=== PATIENT | female | born 1995 | race African-American/Black ===

== ENCOUNTER 2022-11-18 17:14 | Emergency (ER) | payer MEDICAID, OTHER ==
[~2022-11-18] VITALS: Ht 170.2 cm; Wt 113.6 kg
[2022-11-18 17:37] LABS: Basophils # (auto) 0 10 ^3/uL (0-0.2); Basophils % (auto) 0.5 % (0.0-2.0); Eosinophils # (auto) 0.2 10 ^3/uL (0-0.8); Eosinophils % (auto) 3.1 % (0.0-7.0); Hematocrit 36.1 % (36.0-46.0); Hemoglobin 12.1 g/dL (12.2-16.2); Lymphocytes # (auto) 2.1 10 ^3/uL (0.4-5.4); Mean Corpuscular Hemoglobin 29.7 pg (28.0-32.0); Mean Corpuscular Hgb Conc. 33.6 g/dL (32.0-36.0); Mean Corpuscular Volume 88.5 fL (80.0-100.0); Monocytes # (auto) 0.3 10 ^3/uL (0-1.3); Monocytes % (auto) 5.2 % (0.0-12.0); Neutrophils # (auto) 3.4 10 ^3/uL (1.6-8.6); Neutrophils % (auto) 56.2 % (37.0-80.0); Red Blood Cells 4.08 10^6/uL (4.0-5.20); Red Cell Distribution Width 13.2 % (11.8-14.3); White Blood Cell 6.1 10^3/uL (4.4-10.8)
[2022-11-18 17:58] LABS: Alanine Aminotransferase 15 U/L (7-40); Albumin 3.8 g/dL (3.2-4.8); Alkaline Phosphatase 74 U/L (46-116); Anion Gap 7 (5-15); Aspartate Aminotransferase 16 U/L (13-40); BUN/Creatinine Ratio 9.4 (10.0-20.0); Blood Urea Nitrogen 9 mg/dL (9-23); Carbon Dioxide 26 mmol/L (20-30); Chloride 109 mmol/L (98-107); Glucose 77 mg/dL (74-106); Potassium 3.7 mmol/L (3.5-5.1); Sodium 142 mmol/L (136-145)
[2022-11-18 17:59] LABS: Bilirubin, Total 0.4 mg/dL (0.2-1.0); Total Protein 6.3 g/dL (5.7-8.2)
[2022-11-18] MEDS ORDERED: IBUP-1456 PO (18:55)
[2022-11-18] MEDS ORDERED: IBUPROFEN 800 MG TAB PO ONE (19:00)
[2022-11-18] MEDS ORDERED: SIMETHICONE 80 MG CHEWABLE TABLET PO ONE (19:00)
[2022-11-18 19:35] VITALS: BP 114/72; PULSE 80; RESP 18; TEMP 98; O2SAT 99
== END 2022-11-18 19:37 | disposition home or self-care (01) ==
LOC: ER 17:14
DX: R07.89 Other chest pain (principal); J45.909 Unspecified asthma, uncomplicated; Z90.89 Acquired absence of other organs; Z98.890 Other specified postprocedural states
CPT/HCPCS: 36415; 71045; 80053; 83880; 84484; 85025; 93005

== ENCOUNTER 2024-12-10 15:32 | Emergency (ER) | payer MEDICAID ==
[~2024-12-10] VITALS: Ht 177.8 cm; Wt 100.0 kg
[~2024-12-10 15:32] MED LIST: IBUP-1456 PO
--- NOTE | 2024-12-10 16:22 | ED.PDOC ---
History of Present Illness HPI Comments Ms. Mack a 29-year-old female with prior medical history of asthma, who presents today with chief complaint of abdominal pain. The patient states that for the last 3 days she has had right lower quadrant pain described as stabbing, nonradiating, 9/10 intensity, with no aggravating or relieving factors, ass ociated with chills, nausea, febrile sensation, generalized body aches, coughing, shortness of breath, nasal congestion, chest pain described as sharp in the whole chest aggravated with coughing. She denies vomiting, diarrhea, sore throat, dysuria, hematuria, and palpitations. Due to persistence of symptoms, the patient presents for evaluation at the emergency department. On initial evaluation, the patient seems well, is tachycardic, other vitals were within normal range. 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 Family History Family History: Family hx of heart elva, Family hx of stroke Social History Smoker: Non-Smoker Alcohol: Denies ETOH Use Drugs: Denies Drug Use Lives In: Home Constitutional: reports: chills, others (Febrile sensation, generalized body aches); denies: diaphoresis, fatigue, malaise, sweats, weakness EENTM: reports: nasal discharge, nose congestion; denies: blurred vision, double vision, ear bleeding, ear discharge, ear drainage, ear pain, ear ringing, mouth pain, mouth swelling, nose bleeding, nose pain, tearing, throat pain Respiratory: reports: cough; denies: hemoptysis, orthopnea, shortness of breath, wheezing Cardiovascular: reports: chest pain; denies: dizzy spells, diaphoresis, Dyspnea on exertion, edema, left arm pain, lightheadedness, palpitations Gastrointestinal: reports: abdominal pain, nausea; denies: abdomen distended, blood streaked bowels, constipated, diarrhea, dysphagia, hematemesis, melena, poor appetite, poor fluid intake, vomiting Genitourinary: denies: abnormal vagina bleeding, burning, dysuria, flank pain, frequency, hematuria, incontinence, pain, , urgency Neurological: denies: dizziness, fainting, headache, numbness, paresthesia, pre-existing deficit, seizure, tremors Musculoskeletal: denies: back pain, joint pain, joint swelling, muscle pain, muscle stiffness, neck pain Integumetry: denies: bruises, dryness, laceration, lesions, lumps, rash, wounds Physical Exam General Appearance: Normal, Obese HEENT: Normal ENT Inspection, PERRL/EOMI, Pharynx Normal Neck: Full Range of Motion, Non-Tender, Normal Inspection Respiratory: Lungs Clear, No Accessory Muscle Use, No Respiratory Distress, Normal Breath Sounds, Other (Chest wall tenderness on palpation) Cardiovascular: No Edema, No Murmur, Normal Peripheral Pulses, Regular Rate/Rhythm Breast Exam: Deferred Gastrointestinal: Normal Bowel Sounds, RLQ (RLQ pain on palpation, McBurney positive, Shahrzad negative, Rovsing negative, no guarding), Soft Genitalia: Deferred Pelvic: Deferred Rectal: Deferred Extremities: No calf tenderness, Normal capillary refill, Normal inspection, Normal range of motion, No pedal edema Neurologic: Alert, Normal Affect, Normal Mood Cerebellar Function: Normal Reflexes: NOT DONE Skin: Normal Color Lymphatic: Other (No cervical adenopathy) Was a procedure done? Was a procedure done?: No Differential Dx Considerations may include: Influenza, COVID, pneumonia, viral syndrome, appendicitis, gastroenteritis, colitis X-Ray, Labs, Meds, VS Vital Signs Date Time Temp Pulse Resp B/P (MAP) Pulse Ox O2 Delivery O2 Flow Rate FiO2 12/11/24 00:07 98.4 12/10/24 23:32 98.4 92 18 124/61 (82) 100 98.4 12/10/24 21:10 98.7 12/10/24 20:13 100 Room Air* 0 21 12/10/24 20:12 98.0 107 20 154/73 (100) 100 98.0 12/10/24 15:37 99.2 119 20 122/82 95 99.2 Lab Test 12/10/24 20:20 12/10/24 16:49 Range/Units Urine Color Light-yellow Yellow Urine Clarity Turbid H Clear Urine pH 7.0 5.0-9.0 Urine Specific [place] 1.018 1.001-1.035 Urine Protein Negative Negative Urine Ketones Negative Negative Urine Blood Negative Negative /uL Urine Nitrite Negative Negative Urine Bilirubin Negative Negative Urine Urobilinogen Normal Negative mg/dL Urine Leukocyte Esterase Negative Negative /uL Urine RBC 1 0 - 4 /hpf Urine Microscopic WBC 1 0-5 /HPF Urine Squamous Epithelial Cells Mod <5 /hpf Urine Amorphous Crystals Few None Seen /hpf Urine Bacteria Few H None Seen /hpf Urine Mucus Few None Seen Urine Glucose Normal Normal mg/dL Urine Test Negative Negative Influenza Type A Antigen Negative Negative Influenza Type B Antigen Negative Negative SARS-CoV-2 Antigen (Rapid) Negative NEGATIVE White Blood Count 4.4 4.4-10.8 10^3/uL Red Blood Count 4.25 4.0-5.20 10^6/uL Hemoglobin 12.5 12.2-16.2 g/dL Hematocrit 37.3 36.0-46.0 % Mean Corpuscular Volume 87.6 80.0-100.0 fL Mean Corpuscular Hemoglobin 29.3 28.0-32.0 pg Mean Corpuscular Hemoglobin Concent 33.5 32.0-36.0 g/dL Red Cell Distribution Width 13.4 11.8-14.3 % Platelet Count 250 140-450 10^3/uL Mean Platelet Volume 8.0 6.9-10.8 fL Neutrophils (%) (Auto) 81.5 H 37.0-80.0 % Lymphocytes (%) (Auto) 10.1 10.0-50.0 % Monocytes (%) (Auto) 6.8 0.0-12.0 % Eosinophils (%) (Auto) 1.2 0.0-7.0 % Basophils (%) (Auto) 0.4 0.0-2.0 % Neutrophils # (Auto) 3.6 1.6-8.6 10 ^3/uL Lymphocytes # (Auto) 0.4 0.4-5.4 10 ^3/uL Monocytes # (Auto) 0.3 0-1.3 10 ^3/uL Eosinophils # (Auto) 0.1 0-0.8 10 ^3/uL Basophils # (Auto) 0 0-0.2 10 ^3/uL Nucleated Red Blood Cells 0.1 % Sodium Level 140 136-145 mmol/L Potassium Level 3.6 3.5-5.1 mmol/L Chloride Level 106 98-107 mmol/L Carbon Dioxide Level 25 20-31 mmol/L Anion Gap 9 5-15 Blood Urea Nitrogen 9 9-23 mg/dL Creatinine 1.00 0.550-1.02 mg/dL Glomerular Filtration Rate Calc 78 >90 mL/min BUN/Creatinine Ratio 9.0 L 10.0-20.0 Serum Glucose 92 74-106 mg/dL Calcium Level 9.2 8.7-10.4 mg/dL Total Bilirubin 0.4 0.2-1.0 mg/dL Aspartate Amino Transferase (AST) 16 13-40 U/L Alanine Aminotransferase (ALT) 16 7-40 U/L Alkaline Phosphatase 84 46-116 U/L Total Protein 7.5 5.7-8.2 g/dL Albumin 4.2 3.2-4.8 g/dL Current Medications Medications (Trade) Dose Ordered Sig/Jacquelin Route Start Time Stop Time Status Last Admin Ibuprofen (Motrin Tablet) 600 mg ONCE ONCE PO 12/10/24 18:00 12/10/24 18:16 DC 12/10/24 20:10 Acetaminophen (Tylenol Tablet Or Capsule) 1,000 mg ONCE ONCE PO 12/10/24 23:45 12/11/24 00:04 DC 12/11/24 00:07 Time of 1ST Reevaluation: 18:00 Reevaluation 1ST: Unchanged Time of 2ND Reevaluation: 23:30 Reevaluation 2ND: Unchanged Patient Education/Counseling: Diagnosis, Treatment Family Education/Counseling: No Family Present Comments The patient presented with chief complaint of general flu-like symptoms and abdominal pain. On initial evaluation, the patient seemed well, vitals were stable Physical exam was significant for abdominal pain on palpation Workup including CBC, CMP, urinalysis, and influenza/COVID test for benign Chest x-ray and abdominal CT showed no acute findings The patient was given ibuprofen 600 mg p.o. for general body aches, she was subsequently given 1 g of Tylenol when this did not improve symptoms On evaluation of data the patient is low risk for ACS, [place], colitis, panc reatitis, and appendicitis On re-evaluation, the patient was considered stable for discharge home with recommendations for symptomatic treatment given high probability of viral syndrome SEPSIS Sepsis Screen Date sepsis recognized/suspect: Dec 10, 2024 Time Sepsis recognized/suspect: 1537 Recent Procedure: No On Antibiotic Therapy: No Respiratory Rate >20: No Heart Rate >90: Yes Temp<36 C (96.8 F) or >38.3 C: No SBP <90 or MAP <65 mmHG: No New Acute Mental Status Change: No Is the patient on CPAP, BIPAP,: No Physician Orders Chest Two Views Routine (12/10/24 16:16) Ct Ab Pel Wo Con-No Oral Or Iv (12/10/24 16:23) Vital Signs Date Time Temp Pulse Resp B/P (MAP) Pulse Ox O2 Delivery O2 Flow Rate FiO2 12/11/24 00:07 98.4 12/10/24 23:32 98.4 92 18 124/61 (82) 100 98.4 12/10/24 21:10 98.7 12/10/24 20:13 100 Room Air* 0 21 12/10/24 20:12 98.0 107 20 154/73 (100) 100 98.0 12/10/24 15:37 99.2 119 20 122/82 95 99.2 Laboratory Tests Test 12/10/24 16:49 White Blood Count 4.4 10^3/uL (4.4-10.8) Departure 1 Departure Time of Disposition: 23:45 Impression: Primary Impression: Viral syndrome Disposition: HOME / SELF CARE / HOMELESS Condition: Stable Additional Instructions: You presented with chief complaint of general flu-like symptoms and abdominal pain. On initial evaluation, the patient seemed well, vitals were stable Your physical exam was significant for abdominal pain on palpation Your workup including CBC, CMP, urinalysis, and influenza/COVID test for benign Chest x-ray and abdominal CT showed no acute findings You were given ibuprofen 600 mg p.o. for general body aches, and 1 g of Tylenol when this did not improve symptoms On re-evaluation, the you were considered stable for discharge home given high probability of viral syndrome We recommend symptomatic treatment with use of NSAIDs as needed We recommended follow up with your PCP within 1 week Symptoms were to persist or worsen or should you have any further concerns, please return to the emergency department Discharged With: Self Critical Care Note Critical Care Time?: No Stability Stability form required: ANNIE Ordaz RESIDENT Dec 10, 2024 16:22
[2024-12-10 17:21] LABS: Hematocrit 37.3 % (36.0-46.0); Hemoglobin 12.5 g/dL (12.2-16.2); Mean Corpuscular Hemoglobin 29.3 pg (28.0-32.0); Mean Corpuscular Volume 87.6 fL (80.0-100.0); Nucleated Red Blood Cells % 0.1 %
[2024-12-10 17:32] LABS: Alanine Aminotransferase 16 U/L (7-40); Albumin 4.2 g/dL (3.2-4.8); Alkaline Phosphatase 84 U/L (46-116); Anion Gap 9 (5-15); BUN/Creatinine Ratio 9.0 (10.0-20.0); Bilirubin, Total 0.4 mg/dL (0.2-1.0); Calcium 9.2 mg/dL (8.7-10.4); Carbon Dioxide 25 mmol/L (20-31); Chloride 106 mmol/L (98-107); Glucose 92 mg/dL (74-106); Potassium 3.6 mmol/L (3.5-5.1); Sodium 140 mmol/L (136-145); Total Protein 7.5 g/dL (5.7-8.2)
[2024-12-10 17:46] LABS: Blood Urea Nitrogen 9 mg/dL (9-23)
[2024-12-10] MEDS: IBUPROFEN 600 MG TAB PO ONE (20:10)
[2024-12-10 20:13] VITALS: O2SAT 100
[2024-12-10 21:14] LABS: COVID19 ANTIGEN SOFIA FIA NEGATIVE (NEGATIVE)
[2024-12-10 21:16] LABS: Urine Amorphous Crystal FEW /hpf (None Seen); Urine Protein, UAD Negative (Negative)
--- NOTE | 2024-12-10 21:46 | DVH ---
CLINICAL HISTORY: Chest pain TECHNIQUE: Chest 2 views of the chest were obtained. COMPARISON: XR CHEST 1 VIEW on DOS: 01/28/24, XY CHEST PORTABLE on DOS: 11/18/22 FINDINGS: The heart size and pulmonary vasculature are normal. The lungs are clear. No pleural effusion is pres ent. IMPRESSION: NO ACUTE CARDIOPULMONARY PROCESS.
--- NOTE | 2024-12-10 21:52 | DVH ---
CLINICAL HISTORY: ABdominal Pain TECHNIQUE: CT of the abdomen and pelvis was performed without IV contrast. This exam was performed ac cording to our departmental dose optimization program. Up-to-date CT equipment and radiation dose red uction techniques are utilized as appropriate. CTDI 25 DLP 1521 COMPARISON: None FINDINGS: Abdomen/Pelvis: The spleen, pancreas, adrenal glands, kidneys, gallbladder, liver, and bladder are grossly unremarkab le. An IUD is noted within the uterus. The abdominal aorta is normal in course and caliber. There are no significant atherosclerotic calcifi cations. There is no free intraperitoneal air or fluid. There is no enlarged abdominal pelvic lymph node. There is no bowel wall thickening or dilatation. The probable appendix is normal. Regardless, there i s no focal inflammatory process in its expected location. Due to moderate amount of stool in the colo n. Other: The imaged lower thorax is unremarkable. No acute osseous abnormality is evident. Impression: No acute noncontrast CT abnormality in the abdomen / pelvis. Constipation. IUD.
[2024-12-10 23:32] VITALS: BP 124/61; PULSE 92; RESP 18; O2SAT 100
[2024-12-11 00:07] VITALS: TEMP 98.4
[2024-12-11] MEDS: ACETAMINOPHEN 500 MG TAB or CAP PO ONE (00:07)
== END 2024-12-11 00:12 | disposition home or self-care (01) ==
LOC: ER 15:32
DX: B34.9 Viral infection, unspecified (principal); J45.909 Unspecified asthma, uncomplicated; Z90.89 Acquired absence of other organs; Z88.0 Allergy status to penicillin; Z79.1 Long term (current) use of non-steroidal anti-inflammatories (NSAID); Z20.822 Contact with and (suspected) exposure to COVID-19
CPT/HCPCS: 36415; 71046; 74176; 80053; 81001; 81025; 85025; 87426; 87804